=== PATIENT | male | born 1965 | race Caucasian/White ===

== ENCOUNTER 2018-11-30 13:58 | Observation (INO) ==
--- NOTE | 2018-11-30 14:12 | Emergency Department Note ---
Disposition Clinical Impression: TIA (transient ischemic attack) HTN (hypertension) Qualifiers: Hypertension type: essential hypertension Qualified Code(s): I10 - Essential (primary) hypertension Disposition: Admitted As Inpatient Condition: Fair Time of Disposition: 15:37 General Adult HPI - General Chief complaint: ED Neuro Symptoms/Deficit Stated complaint: neuro sx Time Seen by Provider: 11/30/18 14:07 Source: patient, family Limitations: no limitations - History of Present Illness Pain Scale: 0 - Related Data Home Medications Medication Instructions Recorded Confirmed Aspirin [Adult Aspirin] 81 mg PO DAILY 09/02/17 11/30/18 Folic Acid 0.8 mg PO DAILY 09/02/17 11/30/18 Metoprolol [Lopressor] 25 mg PO BID 09/02/17 11/30/18 Multivit-Min/Iron Fum/Folic AC 1 tab PO DAILY 09/02/17 11/30/18 [Nqhyb-Jwxuasl-Lmpfthgg Tablet] Omeprazole [PriLOSEC] 20 mg PO BID 09/02/17 11/30/18 Lisinopril/Hydrochlorothiazide 1 each PO BID 11/30/18 11/30/18 [Lisinopril-Hctz 20-12.5 mg Tab] amLODIPine [Norvasc] 5 mg PO DAILY 11/30/18 11/30/18 Previous Rx's Medication Instructions Recorded Atorvastatin [Lipitor] 40 mg PO HS #30 tablet 12/01/18 Allergies Allergy/AdvReac Type Severity Reaction Status Date / Time No Known Allergies Allergy Verified 11/30/18 14:03 Past Medical History - Past Medical History Medical history: Reports: GERD, hyperlipidemia, hypertension, other Surgical history: Reports: herniorrhaphy Psychiatric history: Reports: anxiety, depression - Social History Smoking Status: Never smoker Smokeless Tobacco Status: No Alcohol use: Reports: rarely Drug use: Reports: none Physical Exam - General Limitations: no limitations General appearance: alert, in no apparent distress Course Vital Signs Temperature 98.3 F 11/30/18 14:01 Pulse Rate 63 11/30/18 14:01 Respiratory Rate 18 11/30/18 14:01 Blood Pressure 192/112 11/30/18 14:01 O2 Sat by Pulse Oximetry 92 11/30/18 14:01 Temperature 98.0 F 12/01/18 11:17 Pulse Rate 61 12/01/18 11:17 Respiratory Rate 16 12/01/18 11:17 Blood Pressure 151/87 12/01/18 11:17 O2 Sat by Pulse Oximetry 91 12/01/18 11:17 Oxygen Delivery Oxygen Delivery Room Air Medical Decision Making - Lab Data Result diagrams: 12/01/18 04:09 12/01/18 04:09 Lab Results 11/30/18 11/30/18 11/30/18 Range/Units 14:01 14:14 14:14 WBC 7.4 (4.3-11.1) K/mcL RBC 5.43 (4.19-5.50) M/mcL Hgb 15.8 (12.9-16.9) g/dL Hct 46.5 (37.5-50.1) % MCV 85.6 (83.0-100.0) fL MCH 29.1 (28.0-33.3) pg MCHC 34.0 (31.6-35.5) g/dL RDW 13.2 (11.5-14.5) % Plt Count 244 (140-400) K/mcL MPV 9.0 L (9.4-12.4) fL Sodium 139 (136-145) mEq/L Potassium 3.6 (3.5-5.1) mEq/L Chloride 98 (98-107) mEq/L Carbon Dioxide 31 H (23-29) mEq/L BUN 17 (6-20) mg/dL Creatinine 0.69 L (0.70-1.30) mg/dL Est GFR ( Amer) > 60 (> 60) Est GFR (Non-Af Amer) > 60 (> 60) BUN/Creatinine Ratio 25 (6-26) Glucose 97 (70-105) mg/dL POC Glucose 99 (70-99) mg/dL Calculated Osmolality 289 (280-300) Calcium 9.8 (8.6-10.3) mg/dL Troponin I < 0.03 (< 0.04) ng/mL Attestation Statement - Attestation Attestation: I examined this patient and my medical decision-making was reviewed with the Resident Physician. I agree with the documented findings, disposition and treatment plan as described except to the extent set forth below. Patient assessment acute onset of neurologic deficits of resolved at the time of arrival. NIH is currently 0, but he had weakness and paresthesias unilaterally prior to arrival. Presentation is consistent with TIA. He also has chest pain or palpitations, cardiac workup will be undertaken as well. I was present for the resident's EKG interpretation.
--- NOTE | 2018-11-30 14:21 | Emergency Department Note ---
Disposition Clinical Impression: TIA (transient ischemic attack) HTN (hypertension) Qualifiers: Hypertension type: unspecified Qualified Code(s): I10 - Essential (primary) hypertension Disposition: Admitted As Inpatient Referrals: Angel Collazo MD [Primary Care Provider] - Forms: ED Satisfaction Letter Time of Disposition: 15:37 Neuro HPI - General Chief Complaint: ED Neuro Symptoms/Deficit Stated Complaint: neuro sx Time Seen by Provider: 11/30/18 14:07 Source: patient, family Mode of arrival: ambulatory Limitations: no limitations Nursing Notes Reviewed: Yes Vital Signs Reviewed: Yes - History of Present Illness HPI Narrative: 53M with PMHx of HTN and a neuromuscular disorder presents to the emergency department after acute onset of left sided weakness and numbness. Last known well was an hour prior to arrival at 1 PM. Upon arrival patient states that his symptoms had completely resolved but she does still have some chest heaviness. He has never had anything like this happen before and denies history of blood clots, heart attack, stroke. He denies fever, chills, headache, changes in vision, difficulty in walking and decreased strength in his hands. - Related Data Home Medications: Home Medications Medication Instructions Recorded Confirmed Aspirin [Adult Aspirin] 1 tab PO DAILY 09/02/17 11/11/18 Folic Acid 1 tab PO DAILY 09/02/17 11/11/18 Metoprolol [Lopressor] 1 tab PO BID 09/02/17 11/11/18 Multivit-Min/Iron Fum/Folic AC 1 tab PO DAILY 09/02/17 11/11/18 [Ukkzv-Qholzse-Zpnunqkv Tablet] Omeprazole [PriLOSEC] 1 cap PO BID 09/02/17 11/11/18 Simvastatin [Zocor] 40 mg PO HS 09/02/17 11/11/18 Lisinopril/Hydrochlorothiazide 1 each PO BID 11/30/18 11/30/18 [Lisinopril-Hctz 20-12.5 mg Tab] amLODIPine [Norvasc] 5 mg PO DAILY 11/30/18 11/30/18 Allergies/Adverse Reactions: Allergies Allergy/AdvReac Type Severity Reaction Status Date / Time No Known Allergies Allergy Verified 11/30/18 14:03 All systems ED: reviewed and negative except as stated. Review of Systems: As Per HPI Constitutional: Reports: weakness. Denies: fever, chills Cardiovascular: Reports: chest pain (pressure). Denies: palpitations, dyspnea on exertion Respiratory: Denies: cough, dyspnea, wheezes Gastrointestinal: Denies: abdominal pain, nausea, vomiting Musculoskeletal: Denies: back pain, neck pain Neurological: Denies: headache Endocrine: Denies: fatigue Past Medical History - Past Medical History Attestation: Yes The following information was validated with the patient. Source: patient Medical history: Reports: GERD, hyperlipidemia, hypertension, other Surgical history: Reports: herniorrhaphy Psychiatric history: Reports: anxiety, depression - Social History Smoking Status: Never smoker Smokeless Tobacco Status: No Alcohol use: Reports: rarely Drug use: Reports: none Physical Exam - General Limitations: no limitations General appearance: alert, in no apparent distress - Head Head exam: atraumatic, normocephalic - Eye Eye exam: Present: normal appearance, EOMI - Neck Neck exam: Present: normal inspection. Absent: tenderness - Chest Chest inspection: Present: normal inspection. Absent: tenderness - Respiratory Respiratory exam: Present: normal lung sounds bilaterally. Absent: wheezes - Cardiovascular Cardiovascular exam: Present: regular rate, normal rhythm - Abdominal Exam Abdominal exam: Present: soft, Non-Tender. Absent: distention, guarding, rebound, rigidity - Extremities Exam Extremities exam: Present: normal inspection. Absent: tenderness, pedal edema - Neurological Exam Neurological exam: Present: alert, oriented X3, other (For further neurologic exam please refer to the NIHSS section) - Psychiatric Psychiatric exam: Present: normal affect, normal mood - Skin Skin exam: Present: warm, dry, intact Course Vital Signs Temperature 98.3 F 11/30/18 14:01 Pulse Rate 63 11/30/18 14:01 Respiratory Rate 18 11/30/18 14:01 Blood Pressure 192/112 11/30/18 14:01 O2 Sat by Pulse Oximetry 92 11/30/18 14:01 Temperature 98.3 F 11/30/18 14:01 Pulse Rate 63 11/30/18 15:02 Respiratory Rate 18 11/30/18 14:57 Blood Pressure 166/107 11/30/18 14:57 O2 Sat by Pulse Oximetry 96 11/30/18 14:57 Oxygen Delivery Oxygen Delivery Room Air Neuro Symptoms/Deficit - MDM Narrative Medical decision making narrative: Patient presents with acute onset left-sided deficits the lasted approximately an hour but have now completely ceased. Since he had complete return of function of his left side a stroke alert was not called. We will still do the entire stroke workup and admit for an MRI and further TIA workup. Patient has no complaints at this time. 1449 - patient's EKG and lab work are unremarkable. Awaiting CT scan of his head at this time. 1536 - CT of the head does not demonstrate any acute abnormalities. While awaiting CT read the patient did have another episode of a neurologic deficit which was demonstrated by some slurred speech noticed by the nurse. Slurred speech has completely resolved at this time. Patient has been accepted for further stroke workup by Dr. Culver. CTA of the head and neck were ordered for admission. - Medical Records Medical records reviewed: Yes I reviewed the patient's medical records. - Lab Data Lab results reviewed: Yes I reviewed the patient's lab results. Result diagrams: 11/30/18 14:14 11/30/18 14:14 Lab Results 11/30/18 11/30/18 11/30/18 Range/Units 14:01 14:14 14:14 WBC 7.4 (4.3-11.1) K/mcL RBC 5.43 (4.19-5.50) M/mcL Hgb 15.8 (12.9-16.9) g/dL Hct 46.5 (37.5-50.1) % MCV 85.6 (83.0-100.0) fL MCH 29.1 (28.0-33.3) pg MCHC 34.0 (31.6-35.5) g/dL RDW 13.2 (11.5-14.5) % Plt Count 244 (140-400) K/mcL MPV 9.0 L (9.4-12.4) fL Sodium 139 (136-145) mEq/L Potassium 3.6 (3.5-5.1) mEq/L Chloride 98 (98-107) mEq/L Carbon Dioxide 31 H (23-29) mEq/L BUN 17 (6-20) mg/dL Creatinine 0.69 L (0.70-1.30) mg/dL Est GFR ( Amer) > 60 (> 60) Est GFR (Non-Af Amer) > 60 (> 60) BUN/Creatinine Ratio 25 (6-26) Glucose 97 (70-105) mg/dL POC Glucose 99 (70-99) mg/dL Calculated Osmolality 289 (280-300) Calcium 9.8 (8.6-10.3) mg/dL Troponin I < 0.03 (< 0.04) ng/mL - Radiology Data Radiology results reviewed: Yes I reviewed the patient's radiology results. - EKG Data EKG attestation: Yes I reviewed and interpreted this EKG. EKG results narrative: EKG obtained at Heart rate 63 bpm, DE interval 175, QRS duration 94, QTC 44, QTC 414 Sinus rhythm with I ST segment elevations or depressions. No other T-wave abnormalities. No significant changes when compared to previous EKG dated 11/11/2018. NIH Stroke Scale - Level of Consciousness LOC: Alert - LOC Questions LOC Questions: Answers both correctly - LOC Commands LOC Commands: Performs both correctly - Best Gaze Best Gaze: Normal - Visual Visual: No visual loss - Facial Palsy Facial Palsy: Normal - Motor Arms Motor Arm-Left: No drift for 10 seconds Motor Arm-Right: No drift for 10 seconds - Motor Legs Motor Leg-Left: No drift for 5 seconds Motor Leg-Right: No drift for 5 seconds - Limb Ataxia Limb Ataxia: Absent of affected limb too weak to perform exam - Sensory Sensory: Normal - Best Language Best Language: No aphasia - Dysarthria Dysarthria: Normal - Extinction and Inattention Extinction and Inattention: Normal - NIHSS Total Score NIHSS Total Score: 0 TPA Checklist - LKW: 3-4.5 hrs Add. Warnings/Precautions Patient/family understanding: The patient/family members have been counseled and understood the risk, benefit, and alternatives of treatment.
[2018-11-30 14:27] LABS: Hematocrit 46.5 % (37.5-50.1); Hemoglobin 15.8 g/dL (12.9-16.9); Mean Corpuscular Hemoglobin 29.1 pg (28.0-33.3); Mean Corpuscular Volume 85.6 fL (83.0-100.0); Platelet Count 244 K/mcL (140-400); Red Blood Count 5.43 M/mcL (4.19-5.50); Red Cell Distribution Width 13.2 % (11.5-14.5); White Blood Count 7.4 K/mcL (4.3-11.1)
[2018-11-30 14:48] LABS: BUN/Creatinine Ratio 25 (6-26); Blood Urea Nitrogen 17 mg/dL (6-20); Calcium 9.8 mg/dL (8.6-10.3); Carbon Dioxide 31 mEq/L (23-29); Chloride 98 mEq/L (98-107); Glucose 97 mg/dL (70-105); Osmolality,Calculated 289 (280-300); Potassium 3.6 mEq/L (3.5-5.1); Sodium 139 mEq/L (136-145); Troponin I < 0.03 ng/mL (< 0.04); eGFR For African Americans > 60 (> 60); eGFR For Non-African Americans > 60 (> 60)
[2018-11-30] MEDS ORDERED: Aspirin 81 MG TAB.CHEW PO ONE (15:13)
[2018-11-30] MEDS ORDERED: Isovue-370 500 ML BOTTLE IVP ONE (15:34)
[2018-11-30] MEDS ORDERED: Naloxone 0.4 MG/ML INJ IVP PRN (17:21)
[2018-11-30] MEDS ORDERED: Ondansetron 4 MG/2 ML VIAL IVP PRN (17:21)
--- NOTE | 2018-11-30 17:27 | Internal Med History&Physical ---
Date of Encounter: 11/30/18 Time of Encounter: 17:00 Internal Medicine - H&P: HPI Chief complaint: L sided paresthesia Admitted From: Home History of present illness: Mr. Coulter is a 53 year old male with history of hypertension, hyperlipidemia, spinal muscular atrophy, who presented to the ED with transient episode of left- sided paresthesia/weakness. He was in his usual state of health until 1 PM when he was on his way to his [facility] place and acutely developed L UE and LE paresthesia in the car. It was mostly in the form of L hand numbness but also had similar loss of sensation in L elbow, shoulder region, as well as left lower extremity. Lasted for about 15 minutes and afterward patients noticed that he developed aphasia for about 2 mins. When asked about the aphasic episode, patient states that he was able to comprehend what his was telling him but was not able to get the words out of his mouth as he felt muffled. Otherwise, denies any chest pain, palpitation, lightheadedness, blurring of vision, diplopia, dysphagia, or gait instability. No tongue biting, loss of consciousness, or urine incontinence. No other cardiopulmonary, GI, or symptoms. Most of his symptoms resolved by the time he arrived in the ED. On presentation, he was afebrile, hypertensive, but otherwise saturating well on room air. NIHSS was 0 on presentation hence telestroke was not performed in the ED. Labwork was benign and CT head was negative for acute intracranial process. However, shortly after CT scan, he again developed episode of aphasia/dysarthria which lasted for 1 minute. By the time ED physician attended to the patient, his NIHSS was again 0. EKG showed NSR without skin changes. Patient was loaded with aspirin and admitted for further management. Past Med Surg Social Fam HX - Past Medical History Attestation: Yes The following information was validated with the patient. Medical history: GERD, hyperlipidemia, hypertension, other Additional medical history: spinal muscle atrophy. sleep apnea w/bipap. [place] w/bilat hearing aides Psychiatric history: anxiety, depression - Past Surgical History Surgical History: herniorrhaphy Additional surgical history: Right leg fracture - Social History Smoking Status: Never smoker Smokeless Tobacco Status: No Alcohol use: rarely Drug use: none Internal Medicine - H&P: Meds Aspirin [Adult Aspirin] 81 mg PO DAILY 09/02/17 [History] Folic Acid 0.8 mg PO DAILY 09/02/17 [History] Metoprolol [Lopressor] 25 mg PO BID 09/02/17 [History] Multivit-Min/Iron Fum/Folic AC [Jbcnf-Yvoxbrm-Kltvoqwv Tablet] 1 tab PO DAILY 09/02/17 [History] Omeprazole [PriLOSEC] 20 mg PO BID 09/02/17 [History] Simvastatin [Zocor] 40 mg PO HS 09/02/17 [History] Lisinopril/Hydrochlorothiazide [Lisinopril-Hctz 20-12.5 mg Tab] 1 each PO BID 11/30/18 [History] amLODIPine [Norvasc] 5 mg PO DAILY 11/30/18 [History] Allergy/AdvReac Type Severity Reaction Status Date / Time No Known Allergies Allergy Verified 11/30/18 14:03 All Systems PM: A 10-system review of systems was performed and is negative for pertinent findings except as documented above in the HPI. - Constitutional Vitals: Temp Pulse Resp BP Pulse Ox 98.3 F 70 17 163/103 95 11/30/18 14:01 11/30/18 17:06 11/30/18 17:06 11/30/18 17:06 11/30/18 17:06 Exam: General: Alert and oriented, not in acute distress. HEENT:EOMI, pupils equal, round and reactive. No nystagmus Cardiovascular:Normal S1 & S2, No JVD. Pulse regular. Lungs: clear to auscultation, no wheezes/rales Abdomen:Soft, non-tender, no rigidity. Extremities:No deformity or swelling Neurological:CN II-XII intact. Power in L UE/LE 4+/5 (chronic according to the pt), R sided power fully intact. Sensation also fully intact in all 4 limbs. No cerebellar signs, pronator drift -ve, Babinski downgoing bilaterally Skin:Normal color, no rash, no lesions. Pulses:Carotid and radial pulses normal +2. Rest of the physical exam is non contributory Internal Med - H&P Results - Labs CBC & Chem 7: 11/30/18 14:14 11/30/18 14:14 Labs: Short CBC 11/30/18 Range/Units 14:14 WBC 7.4 (4.3-11.1) K/mcL Hgb 15.8 (12.9-16.9) g/dL Hct 46.5 (37.5-50.1) % Plt Count 244 (140-400) K/mcL BMP 11/30/18 14:14 Sodium 139 Potassium 3.6 Chloride 98 Carbon Dioxide 31 H BUN 17 Creatinine 0.69 L Glucose 97 Calcium 9.8 Cardiac Enzymes 11/30/18 Range/Units 14:14 Troponin I < 0.03 (< 0.04) ng/mL - Impressions ITS Impressions Head CT 11/30/18 14:09 IMPRESSION: No acute intracranial abnormality. D/ / 11/30/2018 15:20:10 Oriana Payne MD / [facility] Interpreting Provider: Oriana Payne MD Chest X-Ray 11/30/18 14:10 IMPRESSION: Negative limited low lung volume portable chest x-ray. No evidence of acute cardiopulmonary disease, or interval change from November 11, 2018 D/ / Leo Chaudhary MD / Leo Chaudhary MD Interpreting Provider: Leo Chaudhary MD - Assessment and Plan (1) TIA (transient ischemic attack) Current Visit: Yes Status: Acute Assessment and plan: Transient episode of neurological deficits x 2 episodes, no longer present ?spectrum of underlying spinal muscular atrophy ?partial seizure CT head -ve NIHSS per protocol Keep on telemetry, echocardiogram, carotid Doppler Check A1c and lipid panel tomorrow MRI brain (2) HTN (hypertension) Current Visit: Yes Status: Chronic Assessment and plan: Hold meds to allow for permissive hypertension Qualifiers: Hypertension type: essential hypertension Qualified Code(s): I10 - Essential (primary) hypertension (3) Spinal muscular atrophy Current Visit: Yes Status: Chronic (4) JONAS (obstructive sleep apnea) Current Visit: Yes Status: Chronic Assessment and plan: CPAP at HS (5) DVT prophylaxis Current Visit: Yes Status: Acute Assessment and plan: EPCD - Time Spent With Patient Total time spent is greater than 50% in coordination of care (as documented) at patient's floor/unit and/or counseling patient: 25 - 35 minutes
[2018-12-01 04:28] LABS: Hematocrit 44.9 % (37.5-50.1); Mean Corpuscular HGB Conc 33.4 g/dL (31.6-35.5); Mean Corpuscular Hemoglobin 28.9 pg (28.0-33.3); Mean Corpuscular Volume 86.5 fL (83.0-100.0); Mean Platelet Volume 8.9 fL (9.4-12.4); Platelet Count 205 K/mcL (140-400); Red Blood Count 5.19 M/mcL (4.19-5.50); Red Cell Distribution Width 13.3 % (11.5-14.5); White Blood Count 6.9 K/mcL (4.3-11.1)
[2018-12-01 04:52] LABS: BUN/Creatinine Ratio 19 (6-26); Blood Urea Nitrogen 13 mg/dL (6-20); Calcium 9.5 mg/dL (8.6-10.3); Carbon Dioxide 30 mEq/L (23-29); Chloride 101 mEq/L (98-107); Chol/HDL Ratio 4.9 (0-4.9); Cholesterol 183 mg/dL (< 200); Glucose 106 mg/dL (70-105); HDL Cholesterol 37 mg/dL (40-59); LDL Cholesterol,Calculated 92 mg/dL (0-99); Osmolality,Calculated 291 (280-300); Sodium 140 mEq/L (136-145); Triglycerides 270 mg/dL (< 150); eGFR For African Americans > 60 (> 60); eGFR For Non-African Americans > 60 (> 60)
[2018-12-01] MEDS ORDERED: Aspirin Enteric Coated 81 MG Tablet PO SCH (09:00)
[2018-12-01 10:31] LABS: Estimated Average Glucose 120 mg/dl
[2018-12-01 11:23] VITALS: BP 151/87
--- NOTE | 2018-12-01 12:09 | Discharge Summary ---
- NOTES TO OUTPATIENT PROVIDER Notes to Outpatient Provider: Follow-up with neurology as outpatient Date of Encounter: 12/01/18 Time of Encounter: 09:00 - Discharge Diagnosis (1) TIA (transient ischemic attack) Priority: Primary Status: Acute (2) HTN (hypertension) Priority: Secondary Status: Chronic Qualifiers: Hypertension type: essential hypertension Qualified Code(s): I10 - Essential (primary) hypertension (3) Spinal muscular atrophy Priority: Secondary Status: Chronic (4) JONAS (obstructive sleep apnea) Priority: Secondary Status: Chronic (5) DVT prophylaxis Priority: Secondary Status: Acute Hospital course: Mr. Coulter is a 53 year old male with history of hypertension, hyperlipidemia, spinal muscular atrophy, who was admitted for transient episode of left-sided paresthesia/weakness. Stroke alert was not activated as his NIHSS was 0 on presentation. ?TIA vs. progression of his underlying spinal muscular atrophy. CT/MRI -ve and CTA was -ve for flow-limiting stenosis. Patient did not have any recurrence of neurological deficits during his off and on observation and will be discharged home on lipitor (instead of zocor) and aspirin with outpatient Neurology follow up. Discharge discussed with: patient, family, nurse - Time Spent with Patient Total time spent providing and/or coordinating discharge services: 26 mins - Discharge Medications Prescriptions: New Atorvastatin [Lipitor] 40 mg PO HS #30 tablet Continued Omeprazole [PriLOSEC] 20 mg PO BID Folic Acid 0.8 mg PO DAILY Multivit-Min/Iron Fum/Folic AC [Setro-Wdbfxya-Qovfroyb Tablet] 1 tab PO DAILY Aspirin [Adult Aspirin] 81 mg PO DAILY Metoprolol [Lopressor] 25 mg PO BID amLODIPine [Norvasc] 5 mg PO DAILY Lisinopril/Hydrochlorothiazide [Lisinopril-Hctz 20-12.5 mg Tab] 1 each PO BID Discontinued Simvastatin [Zocor] 40 mg PO HS Home Medications: Aspirin [Adult Aspirin] 81 mg PO DAILY 09/02/17 [History] Folic Acid 0.8 mg PO DAILY 09/02/17 [History] Metoprolol [Lopressor] 25 mg PO BID 09/02/17 [History] Multivit-Min/Iron Fum/Folic AC [Sffra-Guwsihc-Zxuiicfa Tablet] 1 tab PO DAILY 09/02/17 [History] Omeprazole [PriLOSEC] 20 mg PO BID 09/02/17 [History] Lisinopril/Hydrochlorothiazide [Lisinopril-Hctz 20-12.5 mg Tab] 1 each PO BID 11/30/18 [History] amLODIPine [Norvasc] 5 mg PO DAILY 11/30/18 [History] Atorvastatin [Lipitor] 40 mg PO HS #30 tablet 12/01/18 [Rx] Allergies/Adverse Reactions: Allergy/AdvReac Type Severity Reaction Status Date / Time No Known Allergies Allergy Verified 11/30/18 14:03 Date of admission: 11/30/18 17:38 Primary care physician: Angel Collazo MD - Constitutional Vitals: Temp Pulse Resp BP Pulse Ox 98.0 F 61 16 151/87 91 12/01/18 11:17 12/01/18 11:17 12/01/18 11:17 12/01/18 11:17 12/01/18 11:17 Exam: General: Alert and oriented, not in acute distress. HEENT:EOMI, pupils equal, round and reactive. No nystagmus Cardiovascular:Normal S1 & S2, No JVD. Pulse regular. Lungs: clear to auscultation, no wheezes/rales Abdomen:Soft, non-tender, no rigidity. Neurological:CN II-XII intact. Power in L UE/LE 4+/5 (chronic according to the pt), R sided power fully intact. Sensation also fully intact in all 4 limbs. No cerebellar signs, pronator drift -ve, Babinski downgoing bilaterally Skin:Normal color, no rash, no lesions. - Patient Status Disposition: Home, Self-Care Condition: Fair Functional capacity at discharge: independent ambulation Overall status at discharge: patient is progressing back to baseline - Discharge Instructions Instructions: Chronic Hypertension (DC) Follow Up With: Angel Collazo MD [Primary Care Provider] - (Appointment has been requested.) Additional Instructions: Follow up with neurology - Diet and Activity Activity: resume usual activities as tolerated Diet: low salt diet
--- NOTE | 2018-12-01 13:50 | Electrocardiograph Report ---
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
[2018-12-01] MEDS ORDERED: Perflutren Lipid Microsphere 1.3 ML in 0.9 % Sodium Chloride 8.7 ML IVP ONE (14:35)
== END 2018-12-01 18:49 | disposition home or self-care (01) ==
LOC: 3BNU 13:58 → EMEROOARM 13:58 → SUATTDRO 17:38 → 3BNU 18:05
PROVIDERS: ADMIT Internal Medicine; ATTEND Internal Medicine

== ENCOUNTER 2020-05-10 09:00 | Observation (INO) ==
[2020-05-10] MEDS ORDERED: Ondansetron 4 MG/2 ML VIAL IVP ONE (09:50)
[2020-05-10] MEDS ORDERED: Morphine Sulfate 2 MG/ML SYRINGE IVP ONE ×2 (09:50→11:19)
[2020-05-10 10:57] LABS: Basophils % 0.3 %; Eosinophils # 0.2 K/mcL (0.0-0.6); Hematocrit 43.6 % (37.5-50.1); Hemoglobin 14.3 g/dL (12.9-16.9); Immature Granulocytes % 0.6 % (0-4); Lymphocytes # 1.4 K/mcL (0.6-4.6); Lymphocytes % 19.8 %; Mean Corpuscular HGB Conc 32.8 g/dL (31.6-35.5); Mean Corpuscular Hemoglobin 28.5 pg (28.0-33.3); Mean Corpuscular Volume 86.9 fL (83.0-100.0); Mean Platelet Volume 9.1 fL (9.4-12.4); Monocytes # 0.6 K/mcL (0.0-1.3); Monocytes % 8.1 %; Neutrophils # 4.7 K/mcL (1.6-8.9); Platelet Count 214 K/mcL (140-400); Red Blood Count 5.02 M/mcL (4.19-5.50); Red Cell Distribution Width 13.9 % (11.5-14.5); Segmented Neutrophils % 68.2 %; White Blood Count 6.9 K/mcL (4.3-11.1)
[2020-05-10 11:11] LABS: BUN/Creatinine Ratio 25 (6-26); Blood Urea Nitrogen 16 mg/dL (6-20); Calcium 9.4 mg/dL (8.6-10.3); Carbon Dioxide 31 mEq/L (23-29); Chloride 102 mEq/L (98-107); Glucose 148 mg/dL (70-105); Osmolality,Calculated 292 (280-300); Potassium 3.6 mEq/L (3.5-5.1); Sodium 139 mEq/L (136-145); eGFR For African Americans > 60 (> 60); eGFR For Non-African Americans > 60 (> 60)
[2020-05-10] MEDS ORDERED: *HR* HYDROmorphone (PF) 1 MG/ML SYRINGE IVP ONE ×2 (12:51→13:01)
[2020-05-10] MEDS ORDERED: Ondansetron 4 MG/2 ML VIAL IVP PRN (13:04)
[2020-05-10] MEDS ORDERED: Naloxone 0.4 MG/ML INJ IVP PRN (13:04)
[2020-05-10] MEDS ORDERED: tiZANidine 4 MG TABLET PO ONE (13:09)
[2020-05-10] MEDS ORDERED: *HR* OxyCODONE Immed Rel 15 MG TABLET PO ONE (14:30)
[2020-05-10] MEDS: *HR* HYDROmorphone (PF) 1 MG/ML SYRINGE IVP PRN ×2 (17:16→21:20)
[2020-05-10] MEDS: Acetaminophen 325 MG TABLET PO PRN (18:30)
[2020-05-10 21:04] LABS: Adenovirus Not Detected (Not Detect); Bordetella Pertussis Not Detected (Not Detect); Chlamydophila pneumoniae Not Detected (Not Detect); Coronavirus 229E Not Detected (Not Detect); Coronavirus HKU1 Not Detected (Not Detect); Coronavirus NL63 Not Detected (Not Detect); Coronavirus OC43 Not Detected (Not Detect); Human Metapneumovirus Not Detected (Not Detect); Human Rhinovirus/Enterovirus Not Detected (Not Detect); Influenza A Subtype 2009 H1 Not Detected (Not Detect); Influenza B Not Detected (Not Detect); Mycoplasma pneumoniae Not Detected (Not Detect); Parainfluenza Virus 1 Not Detected (Not Detect); Parainfluenza Virus 2 Not Detected (Not Detect); Parainfluenza Virus 3 Not Detected (Not Detect); Parainfluenza Virus 4 Not Detected (Not Detect); Respiratory Syncytial Virus Not Detected (Not Detect); SARS-CoV-2 Not Detected (Not Detect)
[2020-05-11] MEDS: Acetaminophen 325 MG TABLET PO PRN ×2 (00:02→08:16)
[2020-05-11] MEDS: *HR* HYDROmorphone (PF) 1 MG/ML SYRINGE IVP PRN ×5 (01:30→21:06)
[2020-05-11 05:08] LABS: INR 1.2; Prothrombin Time 14.2 Seconds (9.4-12.1)
[2020-05-11 05:10] LABS: Hemoglobin 13.3 g/dL (12.9-16.9); Mean Corpuscular HGB Conc 33.3 g/dL (31.6-35.5); Mean Corpuscular Volume 87.1 fL (83.0-100.0); Mean Platelet Volume 8.7 fL (9.4-12.4); Platelet Count 215 K/mcL (140-400); Red Blood Count 4.59 M/mcL (4.19-5.50); Red Cell Distribution Width 13.7 % (11.5-14.5); White Blood Count 9.1 K/mcL (4.3-11.1)
[2020-05-11 05:11] LABS: Activated Partial Thrombo Time 28.8 Seconds (26.0-36.0)
[2020-05-11 05:27] LABS: BUN/Creatinine Ratio 18 (6-26); Blood Urea Nitrogen 12 mg/dL (6-20); Calcium 8.6 mg/dL (8.6-10.3); Carbon Dioxide 30 mEq/L (23-29); Chloride 97 mEq/L (98-107); Chol/HDL Ratio 3.8 (0-4.9); Cholesterol 133 mg/dL (< 200); Glucose 141 mg/dL (70-105); HDL Cholesterol 35 mg/dL (40-59); LDL Cholesterol,Calculated 66 mg/dL (< 100); Magnesium 1.8 mg/dL (1.6-2.6); Osmolality,Calculated 278 (280-300); Potassium 3.4 mEq/L (3.5-5.1); Sodium 133 mEq/L (136-145); Triglycerides 159 mg/dL (< 150); eGFR For African Americans > 60 (> 60); eGFR For Non-African Americans > 60 (> 60)
[2020-05-11] MEDS ORDERED: Potassium Chloride 20 MEQ, Lidocaine 1% 2 ML in 0.9 % Sodium Chloride 250 ML IVPB ONE (08:12)
[2020-05-11] MEDS ORDERED: Aspirin Enteric Coated 81 MG Tablet PO SCH (09:00)
[2020-05-11] MEDS ORDERED: Ropivacaine/PF 0.5% 30 ML VIAL ONE (11:02)
[2020-05-11] MEDS ORDERED: *HR* FentaNYL (PF) 100 MCG/2 ML VIAL ONE ×3 (11:18→13:13)
[2020-05-11] MEDS ORDERED: *HR* Midazolam HCl 2 MG/2 ML VIAL ONE (11:18)
[2020-05-11] MEDS ORDERED: *HR* Propofol 200 MG/20 ML VIAL IVP ONE (11:18)
[2020-05-11 11:19] LABS: Estimated Average Glucose 128 mg/dl; Hemoglobin A1C 6.1 %
[2020-05-11] MEDS ORDERED: *HR* Succinylcholine 200 MG/10 ML VIAL IVP ONE (11:19)
[2020-05-11] MEDS ORDERED: Lidocaine -MPF 2% 2 ML VIAL ONE (11:19)
[2020-05-11] MEDS ORDERED: Lidocaine HCL 4 ML Topical Solution (Laryng-O-Jet Kit Sterile Pak) TP ONE (11:20)
[2020-05-11] MEDS ORDERED: Lidocaine/EPI 1:100k 1% 30 ML VIAL ONE (11:25)
[2020-05-11] MEDS ORDERED: Bupivacaine/EPI 1:200k 0.25% 50 ML VIAL ONE (11:26)
[2020-05-11] MEDS ORDERED: Ondansetron 4 MG/2 ML VIAL IVP PRN ×3 (11:28→14:34)
[2020-05-11] MEDS ORDERED: Ringers Solution, Lactated 1,000 ML IVC SCH ×2 (11:30→14:34)
[2020-05-11] MEDS ORDERED: ceFAZolin 2,000 MG in Water for inj. (sterile) 20 ML IVP ONE ×2 (11:32→14:34)
[2020-05-11] MEDS ORDERED: Ondansetron 4 MG/2 ML VIAL ONE (12:20)
[2020-05-11] MEDS ORDERED: Sugammadex Sodium 200 MG/2 ML VIAL IV ONE (13:08)
[2020-05-11] MEDS: *HR* HYDROmorphone PF 0.5 MG/0.5 ML SYRINGE IVP PRN ×2 (13:40→13:45)
[2020-05-11] MEDS ORDERED: Acetaminophen 325 MG TABLET PO PRN (14:34)
[2020-05-11] MEDS ORDERED: Naloxone 0.4 MG/ML INJ IVP PRN (14:34)
[2020-05-11] MEDS ORDERED: *HR* HYDROmorphone PF 0.5 MG/0.5 ML SYRINGE IVP PRN (14:34)
[2020-05-11] MEDS: ceFAZolin 2,000 MG in 0.9 % Sodium Chloride 100 ML IVPB SCH (20:58)
[2020-05-11] MEDS: Lisinopril-HCTZ 20-12.5mg TABLET PO SCH (20:58)
[2020-05-12 04:55] LABS: Hematocrit 38.5 % (37.5-50.1); Hemoglobin 12.7 g/dL (12.9-16.9); Mean Corpuscular Hemoglobin 29.1 pg (28.0-33.3); Mean Corpuscular Volume 88.3 fL (83.0-100.0); Mean Platelet Volume 8.9 fL (9.4-12.4); Platelet Count 204 K/mcL (140-400); Red Blood Count 4.36 M/mcL (4.19-5.50); Red Cell Distribution Width 13.6 % (11.5-14.5); White Blood Count 9.9 K/mcL (4.3-11.1)
[2020-05-12 05:13] LABS: BUN/Creatinine Ratio 19 (6-26); Blood Urea Nitrogen 10 mg/dL (6-20); Calcium 8.8 mg/dL (8.6-10.3); Carbon Dioxide 31 mEq/L (23-29); Chloride 100 mEq/L (98-107); Glucose 154 mg/dL (70-105); Osmolality,Calculated 288 (280-300); Potassium 3.8 mEq/L (3.5-5.1); Sodium 138 mEq/L (136-145); eGFR For African Americans > 60 (> 60); eGFR For Non-African Americans > 60 (> 60)
[2020-05-12] MEDS: ceFAZolin 2,000 MG in 0.9 % Sodium Chloride 100 ML IVPB SCH (05:35)
[2020-05-12] MEDS ORDERED: amLODIPine 5 MG TABLET PO SCH (09:00)
[2020-05-12] MEDS ORDERED: Aspirin Enteric Coated 81 MG Tablet PO SCH (09:00)
[2020-05-12] MEDS ORDERED: Folic Acid 1 MG TABLET PO SCH (09:00)
[2020-05-12] MEDS: Lisinopril-HCTZ 20-12.5mg TABLET PO SCH (09:16)
[2020-05-12 10:22] VITALS: BP 127/77
== END 2020-05-12 16:37 | disposition home or self-care (01) ==
LOC: EMEROOARM 09:00 → 3ANU 09:00 → SUATTDRO 12:49 → 3ANU 13:37
PROVIDERS: ADMIT Internal Medicine; ATTEND Family Medicine